=== PATIENT | female | born 1960 | race Caucasian/White ===

== ENCOUNTER 2022-02-09 09:13 | Day surgery (SDC) | payer BC, MEDICARE ==
[2022-02-03 12:31] VITALS: BMI 41.1
[2022-02-09] MEDS ORDERED: PROPOFOL 20 ML ONE (12:14)
[2022-02-09] MEDS ORDERED: Fentanyl 100 MCG/2 ML VIAL ONE ×2 (12:14→14:02)
[2022-02-09] MEDS ORDERED: Dexamethasone 4 mg/ml Vial ONE (12:15)
[2022-02-09] MEDS ORDERED: Bupivacaine PF 0.5% 30 ML VIAL ONE (12:15)
[2022-02-09] MEDS ORDERED: Ondansetron PF 4 MG/2 ML Vial ONE (12:15)
[2022-02-09] MEDS ORDERED: Neomycin-Polymyxin 1 ML AMP ONE (12:15)
[2022-02-09] MEDS ORDERED: CEFAZOLIN 2 GM VIAL ONE (12:29)
[2022-02-09] MEDS ORDERED: Dexamethasone 20 MG/5 ML VIAL ONE (13:20)
== END 2022-02-09 15:05 | disposition home or self-care (01) ==
LOC: CSHSDC 09:13
PROVIDERS: ATTEND Podiatrist Foot & Ankle Surgery
PROC: 0QSP04Z Reposition Left Metatarsal with Internal Fixation Device, Open Approach (ICD-10-PCS; principal; 2022-02-09)
PROC: 0QBP0Z2 Excision of Left Metatarsal, Sesamoid Bone(s) 1st Toe, Open Approach (ICD-10-PCS; principal; 2022-02-09)
DX: M20.12 Hallux valgus (acquired), left foot (principal); M79.7 Fibromyalgia; M06.9 Rheumatoid arthritis, unspecified; F32.A Depression, unspecified; E11.43 Type 2 diabetes mellitus with diabetic autonomic (poly)neuropathy; K31.84 Gastroparesis; G47.00 Insomnia, unspecified; J44.9 Chronic obstructive pulmonary disease, unspecified; J45.909 Unspecified asthma, uncomplicated; K21.9 Gastro-esophageal reflux disease without esophagitis; M50.90 Cervical disc disorder, unspecified, unspecified cervical region; M19.90 Unspecified osteoarthritis, unspecified site; Z79.84 Long term (current) use of oral hypoglycemic drugs; Z79.899 Other long term (current) drug therapy; Z91.040 Latex allergy status; Z88.8 Allergy status to other drugs, medicaments and biological substances; Z98.890 Other specified postprocedural states
CPT/HCPCS: C1713; J1100; J2405; J2704; J3010; S0020

== ENCOUNTER 2022-10-16 09:42 | Day surgery (SDC) | payer BC, MEDICARE ==
[2022-10-14 14:30] VITALS: BMI 41.5
[~2022-10-16 09:42] MED LIST: Bupivacaine PF 0.5% 30 ML VIAL ONE
[2022-10-16] MEDS ORDERED: CEFAZOLIN 2 GM VIAL ONE (10:54)
[2022-10-16] MEDS ORDERED: fentaNYL 50 mcg/mL 1 mL Vial ONE ×2 (10:57→11:24)
[2022-10-16] MEDS ORDERED: PROPOFOL 20 ML ONE (10:58)
[2022-10-16] MEDS ORDERED: Lidocaine 1% PF 5 ML VIAL ONE (11:02)
[2022-10-16] MEDS ORDERED: Ondansetron PF 4 MG/2 ML Vial ONE (11:44)
[2022-10-16] MEDS ORDERED: Ketorolac Tromethamine 30 MG/ML VIAL ONE (11:44)
[2022-10-16] MEDS ORDERED: Dexamethasone 4 mg/ml Vial ONE (11:44)
== END 2022-10-16 13:00 | disposition home or self-care (01) ==
LOC: CSHSDC 09:42
PROVIDERS: ATTEND Podiatrist Foot & Ankle Surgery
PROC: 0SPG0JZ Removal of Synthetic Substitute from Left Ankle Joint, Open Approach (ICD-10-PCS; principal; 2022-10-16)
DX: T84.84XA Pain due to internal orthopedic prosthetic devices, implants and grafts, initial encounter (principal); I10 Essential (primary) hypertension; E11.9 Type 2 diabetes mellitus without complications; K21.9 Gastro-esophageal reflux disease without esophagitis; Z87.891 Personal history of nicotine dependence; Z79.84 Long term (current) use of oral hypoglycemic drugs; Z79.899 Other long term (current) drug therapy; Z96.659 Presence of unspecified artificial knee joint; Z91.040 Latex allergy status; Z88.1 Allergy status to other antibiotic agents; Z88.2 Allergy status to sulfonamides; Z88.6 Allergy status to analgesic agent; Z88.8 Allergy status to other drugs, medicaments and biological substances
CPT/HCPCS: J1100; J1885; J2405; J2704; J3010; S0020